=== PATIENT | female | born 1980 | race Caucasian/White ===

== ENCOUNTER → 2024-03-24 | Outpatient (CLI) | payer BC, MEDICAID, SELFPAY | END | disposition home or self-care (01) | PROVIDERS: PCP Family Medicine; Referring Provider Family Medicine; Visit Provider Family Medicine | DX: Z00.00 Encounter for general adult medical examination without abnormal findings (principal); Z13.0 Encounter for screening for diseases of the blood and blood-forming organs and certain disorders involving the immune mechanism; Z13.29 Encounter for screening for other suspected endocrine disorder; Z13.21 Encounter for screening for nutritional disorder; Z13.220 Encounter for screening for lipoid disorders; Z13.1 Encounter for screening for diabetes mellitus ==

== ENCOUNTER 2024-03-25 14:58 | Emergency (ER) | payer MEDICAID, SELFPAY ==
[2024-03-25 14:59] VITALS: BMI 34.0
--- NOTE | 2024-03-25 15:55 | XR_ITS ---
EXAMINATION: Ankle, left 3 views . Technique: Ankle AP, oblique, lateral 3 views Date and time of exam: March 25, 2024 at 1602 hrs. Indications: Onset left ankle pain today. Findings: Mild medial malleolar soft tissue swelling No ankle fracture or dislocation No cortical bone destruction 6 mm plantar bony calcaneal spur Mild narrowing tibiotalar and talonavicular joints Impression: Mild osteoarthritis 6 mm plantar bony calcaneal spur
--- NOTE | 2024-03-25 16:03 | PC.NURSE ---
called pt back, no answer at this time
[2024-03-25 16:30] VITALS: BP 125/73; PULSE 76; RESP 18; TEMP 37.3; O2SAT 99
--- NOTE | 2024-03-25 17:57 | PD.EDANKLE ---
Lower Extremity Injury RME/HPI General Chief Complaint: Ankle/Foot Injury Stated Complaint: LEFT ANKLE PAIN SINCE LAST NIGHT Time Seen by Provider: 03/25/24 17:55 Arrival date/time: 03/25/24 14:58 This is a 43-year-old female comes in with left ankle pain that started yesterday. Patient states it hurts to walk on. Patient has a history of cholecystectomy . Patient denies any past medical history. Patient denies trauma. Related Data Previous Rx's ?Medication ?Instructions ?Recorded psyllium husk 3 gram/5.4 gram oral 1 tbsp PO QDAY #426 grams 06/26/20 powder ibuprofen 800 mg tablet 800 mg PO Q6H PRN pain #14 tabs 03/25/24 Allergies Allergy/AdvReac Type Severity Reaction Status Date / Time No Known Allergies Allergy Verified 03/25/24 14:59 Review of Systems Review of Systems Systems Reviewed: All systems reviewed, normal except as documented Past Medical History Social History SMOKING STATUS: Never smoker Travel History EBOLA RISK: No ED Exam General General appearance: Present alert and in no apparent distress Head Head exam: Present atraumatic Eye Eye exam: Present normal appearance, PERRL and EOMI ENT ENT exam: Present normal exam, normal oropharynx and mucous membranes moist Neck Neck exam: Present normal inspection, full ROM and trachea midline Chest Chest inspection: Present normal inspection and symmetric chest wall rise Respiratory Respiratory exam: Present normal lung sounds bilaterally Cardiovascular Cardiovascular exam: Present regular rate and normal rhythm Abdominal Exam Abdominal exam: Present soft Extremities Exam Extremities exam: Present full ROM and other (left ankle pain with rom, no swelling ) Back Exam Back exam: Present normal inspection and full ROM Neurological Exam Neurological exam: Present alert, oriented X3 and CN II-XII intact Psychiatric Psychiatric exam: Present normal affect and normal mood Skin Skin exam: Present warm and dry Course Quality Measures none Orders Category Date Time Status XR ankle comp LT min 3V Stat Exams 03/25/24 15:55 Completed Acetaminophen Tab [Tylenol ES Tab] Med 03/25/24 17:57 Discontinued 1,000 mg PO X1 ONE Ketorolac Inj [Toradol Inj] Med 03/25/24 17:57 Discontinued 60 mg IM X1 ONE Ondansetron Odt [Zofran Odt] Med 03/25/24 18:09 Discontinued 4 mg PO X1 ONE Vital Signs Vital signs: Vital Signs Temperature 99.2 F 01/04/25 16:30 Pulse Rate 76 03/25/24 16:30 Respiratory Rate 18 03/25/24 16:30 Blood Pressure 125/73 03/25/24 16:30 Pulse Oximetry (%) 99 03/25/24 16:30 Oxygen Delivery Method Room Air 03/25/24 16:30 Extremity Injury, Lower MDM Narrative MDM Narrative:: Findings: Mild medial malleolar soft tissue swelling No ankle fracture or dislocation No cortical bone destruction 6 mm plantar bony calcaneal spur Mild narrowing tibiotalar and talonavicular joints Impression: Mild osteoarthritis 6 mm plantar bony calcaneal spur Patient states that she has a possible blood clot to her left lower extremity. I explained to her that I did not feel that she needed a venous Doppler to her lower extremity but family member scared her that it might be a blood clot. Venous Doppler ordered. After about 2 hours of waiting patient did not want to wait for venous Doppler and would like to go home. Patient told to elevate and ice ankle follow-up with primary provider in 1 to 2 days. Come back to the emergency room if symptoms change or worsen Patient data External records reviewed:: [facility] Clinical information provided by:: patient Social determinants that could affect healthcare access:: none Patient has the following chronic illnesses:: none How is presenting disease/condition affected by chronic disease/condition?: no chronic disease Evaluation data The following diagnostics were reviewed and interpreted by me:: radiology exam(s) Lab and/or radiology exams considered but not ordered:: none Interpretation Summary: see note Medications / Prescriptions Medications or Prescriptions considered but not ordered:: none Medication administrations:: Medication Administration History Discontinued Medications Acetaminophen (Acetaminophen 500 Mg Tablet) 1,000 mg PO X1 ONE Stop: 03/25/24 17:58 Last Admin: 03/25/24 18:14 Dose: 1,000 mg Documented By: OA Ketorolac Tromethamine (Ketorolac Inj 60 Mg/2 Ml Vial) 60 mg IM X1 ONE Stop: 03/25/24 17:58 Last Admin: 03/25/24 18:14 Dose: 60 mg Documented By: OA Ondansetron HCl (Ondansetron Odt 4 Mg Tabrap) 4 mg PO X1 ONE; Protocol Stop: 03/25/24 18:10 Last Admin: 03/25/24 18:16 Dose: 4 mg Documented By: OA see mar Consultations Consultation(s) initiated? (list below): No Diagnosis Most likely diagnosis given after review of the tests above:: ankle sprain Admission Indicated Admission indicated?: not indicated Admission Request Was there a request for admission?: No Disposition Plan Disposition Plan: Discharge Discharge Attestation Discharge Attestation: The patient and all family members were given an opportunity to ask questions and understood the discharge instructions. Discharge instructions specifically effects, indications for sooner follow up or return to the emergency department, and the expected course of current diagnosis. Patient condition: Stable Discharge Plan Plan Patient Disposition: HOME (Self Care) Patient condition on transfer: Stable Prescriptions/Referrals Prescriptions/Med Rec: New ibuprofen 800 mg tablet 800 mg PO Q6H PRN (Reason: pain) Qty: 14 0RF No Action psyllium husk 3 gram/5.4 gram powder 1 tbsp PO QDAY Qty: 426 0RF Rx Instructions: mix into at least 8 oz of water or juice before administering Referrals: Justino (PCP),MD Venkata [Primary Care Provider] - In 1 week Problem List Clinical Impression: Calcaneal spur, Ankle pain Patient/Caregiver Discharge Instructions Discharge Activity: activity as tolerated Education Materials: ED RICE Additional Instructions: Follow up with primary provider in 1-2 days. Come back to ED if symptoms change or worsen. Print Language: Lebanese Stand Alone Forms: Jeannine Award Info., Work/School Release, Patient Portal Info Letter PEDRO/FLETCHER Supervising Physician PEDRO/FLETCHER Supervising Physician: maco
[2024-03-25] MEDS: KETOROLAC INJ 60 MG/2 ML VIAL IM (18:14)
[2024-03-25] MEDS: ACETAMINOPHEN 500 MG TABLET 1000 MG PO (18:14)
[2024-03-25] MEDS: ONDANSETRON ODT 4 MG TABRAP PO (18:16)
== END 2024-03-25 22:18 | disposition home or self-care (01) ==
PROVIDERS: Emergency Provider Emergency Medicine; PCP Family Medicine
DX: M77.32 Calcaneal spur, left foot (principal)
CPT/HCPCS: 73610; 96372; 99284; J1885; Q0162; A9270